=== PATIENT | female | born 1990 | race Caucasian/White ===

== ENCOUNTER 2019-09-07 18:00 | Inpatient (IN) | payer BC ==
[2019-09-07] MEDS: Lactated Ringer's 1,000 ML IV SCH ×2 (18:49→21:00)
[2019-09-07] MEDS ORDERED: Misoprostol 200 MCG TAB PR PRN (19:16)
[2019-09-07] MEDS ORDERED: Butorphanol Tartrate 1 MG/ML VIAL SLOW IVP PRN (19:16)
[2019-09-07] MEDS ORDERED: hydrALAZINE 20 MG/ML VIAL SLOW IVP PRN (19:16)
[2019-09-07] MEDS ORDERED: Zolpidem Tartrate 5 MG TAB PO PRN (19:16)
[2019-09-07] MEDS ORDERED: Diphenoxylate HCl/Atropine Tablet PO PRN ×2 (19:16)
[2019-09-07] MEDS ORDERED: Lidocaine 1% (PF) 30 ML VIAL SC PRN (19:16)
[2019-09-07] MEDS ORDERED: NS / Oxytocin 40 units/1000ml 1,000 ML IV PRN (19:16)
[2019-09-07] MEDS ORDERED: Ondansetron PF 4 MG/2 ML Vial IVP PRN (19:16)
[2019-09-07] MEDS ORDERED: HYDROcodone/Acetaminophen 5/325 mg Tablet PO PRN ×2 (19:16)
[2019-09-07] MEDS ORDERED: Ibuprofen 800 MG TAB PO PRN (19:16)
[2019-09-07] MEDS ORDERED: Promethazine HCl 25 MG/ML VIAL IM PRN (19:16)
[2019-09-07] MEDS ORDERED: Carboprost 250 MCG/ML AMP IM PRN (19:16)
[2019-09-07 19:28] LABS: Hemoglobin 12.4 g/dL (12.0-16.0); Mean Corpuscular HGB CONC 34.2 g/dL (32.0-36.0); Mean Corpuscular Hemoglobin 26.6 pg (27.0-31.0); Mean Corpuscular Volume 77.5 fL (78.0-98.0); Mean Platelet Volume 9.3 fL (7.4-10.4); Platelet Count 249 thou/uL (130-400); RBC Distribution Width 12.9 % (11.5-14.5); Red Blood Cell (RBC) Count 4.65 mill/uL (4.20-5.40)
[2019-09-07 19:40] VITALS: BMI 44.8
[2019-09-07 19:43] LABS: ALT (SGPT) 14 U/L (8-55); AST (SGOT) 10 U/L (5-34); Albumin 3.6 g/dL (3.5-5.0); Alkaline Phosphatase 132 U/L (40-110); Anion Gap 16 mmol/L (10-20); BUN (Urea Nitrogen) 5 mg/dL (7.0-18.7); Bilirubin, Total 0.9 mg/dL (0.2-1.2); Calc. Creatinine Clearance 297 mL/min (70-130); Calcium 9.5 mg/dL (7.8-10.44); Carbon Dioxide 22 mmol/L (22-29); Chloride 102 mmol/L (98-107); Estimated GFR-MDRD Greater than 90; Globulin 2.9 g/dL (2.4-3.5); Glucose 132 mg/dL (70-105); Potassium 3.7 mmol/L (3.5-5.1); Protein, Total 6.5 g/dL (6.0-8.3); Sodium 136 mmol/L (136-145)
[2019-09-07 20:00] LABS: HBSAg Index 0.23 S/CO (0-0.99); Hep B Surf Ag Non-Reactive S/CO (NonReactive); Syphilis Antibody Nonreactive (Nonreactive); Syphilis Antibody Index 0.04 S/CO (<1.00 Non-Reactive)
--- NOTE | 2019-09-07 20:11 | PDOC.LDHP ---
Labor and Delivery H&P Chief complaint: scheduled induction (IOL for GHTN), other HPI: Pt presents for GHTN Current gestational age (weeks): 37 Due date: 09/28/19 Dating criteria: last menstrual period Grav: 4 Para: 1 OB History Details: 2014 39.5 . 8.10 2018 SAB 03/2018 SAB Current complications: gestational hypertension Abnormal US findings: No Past Medical History: Headaches Current medications: pre-hrajinder vitamins Previous surgical history: cholecystectomy, other (Dental surgery) Allergies/Adverse Reactions: Allergies Allergy/AdvReac Type Severity Reaction Status Date / Time erythromycin base Allergy Mild Hives Verified 09/07/19 19:11 Social history: none - Physical Exam Vital signs reviewed and normal: yes General: breathing through contractions Lungs: nonlabored breathing Abdomen: gravid Extremeties: trace edema FHT: category 1 (135 baseline, moderate variability, neg decels.) [place] contractions every: none - Vaginal Exam cm dilated: 3 Effacement: 50% Station: -3 - OB Labs RH: positive Antibody Screen: negative HIV: negative RPR: negative HEPSAg: negative 1 hour GCT: negative GBS: negative Urine drug screen: negative Rubella: immune Additional Labs: Laboratory Tests 09/07/19 09/07/19 09/07/19 19:10 19:10 19:10 WBC 10.0 RBC 4.65 Hgb 12.4 Hct 36.1 MCV 77.5 L MCH 26.6 L MCHC 34.2 RDW 12.9 Plt Count 249 MPV 9.3 Sodium 136 Potassium 3.7 Chloride 102 Carbon Dioxide 22 Anion Gap 16 BUN 5 L Creatinine 0.58 L Estimated GFR (MDRD) Greater than 90 Glucose 132 H Calcium 9.5 Total Bilirubin 0.9 AST 10 ALT 14 Alkaline Phosphatase 132 H Serum Total Protein 6.5 Albumin 3.6 Globulin 2.9 Albumin/Globulin Ratio 1.2 Syphilis IgG/IgM Ab Nonreactive - Assessment L&D Assessment: medically indicated induction - Plan Plan: admit to L&D, cervical ripening (with balloon), other (IV antihypertensives for severe range BPs Cephalic presentation verified by bedside US.)
[2019-09-08] MEDS: Lactated Ringer's 1,000 ML IV SCH ×2 (03:30→12:16)
[2019-09-08] MEDS ORDERED: NS w/ Oxytocin 10 units 500 ML IV SCH (07:00)
--- NOTE | 2019-09-08 07:50 | PDOC.LDPN ---
Labor & Delivery Progress Note - Subjective Subjective: comfortable - Objective Vital signs reviewed and normal: yes General: NAD, resting Uterine fundus: non tender [place] contractions every: none - Assessment (1) Gestational hypertension Code(s): O13.9 - GESTATIONAL HTN W/O SIGNIFICANT PROTEINURIA, UNSP TRIMESTER Current Visit: Yes Status: Acute Plan: other -: A: presenting part is not palpable with cervical exam. Bedside sono to confirm Cephalic presentation after balloon was removed. Bladder is over distended. Inst patient to urinate or will place catheter to drain. P: Urinate Obtain 20min FHT strip Start pitocin. Will reassess for decent. Plan on AROM and Internal placement.
[2019-09-08 09:17] LABS: Bilirubin Negative (Negative); Blood, Urine 2+ (Negative); Clarity Turbid (Clear); Glucose, Urine (Dipstick) Normal (Negative); Leukocyte 500 Leu/uL (Negative); Nitrite Negative (Negative); Protein, Urine (Dipstick) 20 mg/dL (Neg-Trace); RBC/HPF Greater than 50 HPF (0-3); Squamous Epithelial 0-3 HPF (0-3); Urobilinogen Normal mg/dL (Less than 2); WBC/HPF Greater than 50 HPF (0-3)
[2019-09-08 09:24] LABS: Bacteria/HPF Rare-Few HPF (None Seen)
--- NOTE | 2019-09-08 14:14 | PDOC.LDPN ---
Labor & Delivery Progress Note - Subjective Subjective: comfortable - Objective Vital signs reviewed and normal: yes General: breathing through contractions Dilation: 3 Effacement: 75% Station: -3 FHT: category 1 AROM: clear fluid FSE placed: yes - Assessment (1) Gestational hypertension Code(s): O13.9 - GESTATIONAL HTN W/O SIGNIFICANT PROTEINURIA, UNSP TRIMESTER Current Visit: Yes Status: Acute Plan: continue plan of care, pitocin for augmentation
[2019-09-08] MEDS ORDERED: Lidocaine 1% (PF) 30 ML VIAL ONE (14:49)
[2019-09-08] MEDS ORDERED: NS / Oxytocin 40 units/1000ml 1,000 ML ONE (14:49)
--- NOTE | 2019-09-08 17:46 | PDOC.OPDEL ---
OB Operative/Delivery Note Delivery Dr/Surgeon: Miguel Amaya Pre-Delivery Diagnosis: active labor Procedure/Post Delivery Dx: spontaneous vaginal delivery Weeks gestation: 37 Anesthesia: none - Findings A Sex: female Weight: 7 lb 9 oz - 1 min: 9 - 5 min: 9 - Additional Findings/Plan Placenta delivered: spontaneous Repaired Obstetrical Laceration: none Post delivery plan: routine recovery
[2019-09-08] MEDS ORDERED: Labetalol HCl 100 MG/20 ML VIAL SLOW IVP PRN (18:33)
[2019-09-08] MEDS: Labetalol 100 MG TAB PO SCH (20:48)
[2019-09-08 23:59] LABS: Bacteria/HPF None Seen HPF (None Seen); Bilirubin Negative (Negative); Blood, Urine 2+ (Negative); Clarity Turbid (Clear); Glucose, Urine (Dipstick) 100 mg/dL (Negative); Leukocyte 25 Leu/uL (Negative); Mucous/LPF 4+ LPF (<2+); Nitrite Negative (Negative); Protein, Urine (Dipstick) 50 mg/dL (Neg-Trace); RBC/HPF Greater than 50 HPF (0-3); Squamous Epithelial None Seen HPF (0-3); Urobilinogen Normal mg/dL (Less than 2)
[2019-09-09 00:02] LABS: Mean Corpuscular HGB CONC 34.2 g/dL (32.0-36.0); Mean Corpuscular Hemoglobin 26.8 pg (27.0-31.0); Mean Corpuscular Volume 78.5 fL (78.0-98.0); Mean Platelet Volume 9.2 fL (7.4-10.4); Platelet Count 230 thou/uL (130-400); RBC Distribution Width 13.1 % (11.5-14.5); White Blood Cell (WBC) Count 20.9 thou/uL (4.8-10.8)
[2019-09-09 00:19] LABS: ALT (SGPT) 14 U/L (8-55); AST (SGOT) 12 U/L (5-34); Albumin 2.9 g/dL (3.5-5.0); Alkaline Phosphatase 101 U/L (40-110); Anion Gap 13 mmol/L (10-20); BUN (Urea Nitrogen) 4 mg/dL (7.0-18.7); Bilirubin, Total 1.1 mg/dL (0.2-1.2); Calc. Creatinine Clearance 313 mL/min (70-130); Calcium 8.8 mg/dL (7.8-10.44); Carbon Dioxide 19 mmol/L (22-29); Chloride 106 mmol/L (98-107); Estimated GFR-MDRD Greater than 90; Globulin 2.8 g/dL (2.4-3.5); Glucose 131 mg/dL (70-105); Potassium 3.5 mmol/L (3.5-5.1); Protein, Total 5.7 g/dL (6.0-8.3); Sodium 134 mmol/L (136-145)
[2019-09-09] MEDS ORDERED: Methylergonovine 0.2 MG/ML VIAL IM PRN (00:55)
[2019-09-09] MEDS ORDERED: NS / Oxytocin 40 units/1000ml 1,000 ML IV SCH (00:55)
[2019-09-09] MEDS ORDERED: Bisacodyl 10 MG SUPP PR PRN (00:55)
[2019-09-09] MEDS ORDERED: Ondansetron PF 4 MG/2 ML Vial IVP PRN (00:55)
[2019-09-09] MEDS ORDERED: hydrALAZINE 20 MG/ML VIAL SLOW IVP PRN (00:55)
[2019-09-09] MEDS ORDERED: Benzocaine-Menthol 82.5 ML CAN TOP PRN (00:55)
[2019-09-09] MEDS ORDERED: HYDROcodone/Acetaminophen 5/325 mg Tablet PO PRN ×2 (00:55)
[2019-09-09] MEDS ORDERED: Misoprostol 200 MCG TAB VAG PRN (00:55)
[2019-09-09] MEDS ORDERED: Milk Of Magnesia 30 ML UDCUP PO PRN (00:55)
[2019-09-09] MEDS ORDERED: Docusate Calcium (SURFAK) 240 MG CAP PO SCH (01:00)
[2019-09-09] MEDS: Ibuprofen 800 MG TAB PO SCH ×4 (05:59→20:46)
[2019-09-09] MEDS ORDERED: Adacel (T-DAP) 0.5 ML SYRINGE IM ONE (09:00)
[2019-09-09] MEDS ORDERED: Loratadine 10 MG TAB PO PRN (09:23)
--- NOTE | 2019-09-09 09:27 | PDOC.PP ---
Post Progress Note Post Day #: 1 Subjective: Patient is doing well. Has a headache now, but thinks it is from lack of caffeine. Denies RUQ pain or scomata. She is interested in going home today. is going well. PO intake tolerated: yes Flatus: yes Ambulation: yes Vital Signs (12 hours) Temp Pulse Resp BP BP Pulse Ox 09/09/19 08:53 98.1 F 94 16 111/55 L 98 09/08/19 22:21 113 H 169/58 H Weight Weight 295 lb - Physical Examination General: NAD Cardiovascular: no m/r/g, RRR Respiratory: clear to auscultation bilaterally, non-labored breathing Abdominal: + bowel sounds, no distention, appropriately TTP Extremities: negative homans (B) Skin: no rash Neurological: no gross focal deficits Psychiatric: A&Ox3, normal affect Result Diagrams: 09/08/19 23:48 09/08/19 23:48 Additional Labs: Post Labs Blood Type O POSITIVE 09/07/19 19:38 Hep Bs Antigen Non-Reactive S/CO (NonReactive) 09/07/19 19:10 (1) Gestational hypertension Code(s): O13.9 - GESTATIONAL HTN W/O SIGNIFICANT PROTEINURIA, UNSP TRIMESTER Status: Acute (2) (spontaneous vaginal delivery) Code(s): O80 - ENCOUNTER FOR FULL-TERM UNCOMPLICATED DELIVERY Status: Acute - Assessment/Plan A: G4 now p2 sp following IOL for GHTN. BP controlled on PO antihypertensive agents. P: Consider discharge home at 24 hrs if BP are NML and ENAMORADO resolves.
[2019-09-09] MEDS: Labetalol 100 MG TAB PO SCH ×2 (09:29→20:45)
[2019-09-09] MEDS: Docusate Calcium (SURFAK) 240 MG CAP PO SCH ×2 (09:30→20:40)
[2019-09-09] MEDS: Prenatal Vitamin 1 TAB PO SCH (09:30)
[2019-09-09] MEDS: Ferrous Sulfate 325 MG TAB PO SCH ×2 (09:37→17:45)
[2019-09-09] MEDS: Lactated Ringer's 1,000 ML IV SCH (19:54)
[2019-09-10] MEDS: Ibuprofen 800 MG TAB PO SCH ×2 (06:07→14:21)
--- NOTE | 2019-09-10 06:41 | PDOC.PP ---
Post Progress Note Post Day #: PPD2 Subjective: DC held, baby under bili light. She has no c/o today. PO intake tolerated: yes Flatus: yes Ambulation: yes Vital Signs (12 hours) Temp Pulse Resp BP BP Pulse Ox 09/09/19 20:45 98 113/59 L 09/09/19 20:00 98.5 F 98 18 113/59 L 98 Weight Weight 133.81 kg - Physical Examination General: NAD Respiratory: non-labored breathing Neurological: no gross focal deficits Psychiatric: normal affect Result Diagrams: 09/08/19 23:48 09/08/19 23:48 Additional Labs: Post Labs Blood Type O POSITIVE 09/07/19 19:38 Hep Bs Antigen Non-Reactive S/CO (NonReactive) 09/07/19 19:10 - Assessment/Plan DC home today. Precautions reviewed. RTC 6 weeks with Daly Amaya.
[2019-09-10] MEDS: Ferrous Sulfate 325 MG TAB PO SCH (08:50)
[2019-09-10] MEDS: Prenatal Vitamin 1 TAB PO SCH (09:18)
[2019-09-10] MEDS: Docusate Calcium (SURFAK) 240 MG CAP PO SCH (09:19)
[2019-09-10] MEDS: Labetalol 100 MG TAB PO SCH (09:19)
[2019-09-10 13:21] VITALS: BP 137/70; TEMP 98.7
== END 2019-09-10 15:30 | disposition home or self-care (01) | DRG 807 ==
LOC: L&D 19:29 → 3SW 09-09 08:25
PROVIDERS: ADMIT Student in an Organized Health Care Education/Training Program; ATTEND Student in an Organized Health Care Education/Training Program
PROC: 3E033VJ Introduction of Other Hormone into Peripheral Vein, Percutaneous Approach (ICD-10-PCS; 2019-09-07)
PROC: 3E0P7VZ Introduction of Hormone into Female Reproductive, Via Natural or Artificial Opening (ICD-10-PCS; 2019-09-07)
PROC: 10907ZC Drainage of Amniotic Fluid, Therapeutic from Products of Conception, Via Natural or Artificial Opening (ICD-10-PCS; 2019-09-07)
PROC: 10E0XZZ Delivery of Products of Conception, External Approach (ICD-10-PCS; principal; 2019-09-09)
DX: O13.4 Gestational [pregnancy-induced] hypertension without significant proteinuria, complicating childbirth (principal); Z37.0 Single live birth; Z3A.37 37 weeks gestation of pregnancy; Z90.49 Acquired absence of other specified parts of digestive tract; Z88.1 Allergy status to other antibiotic agents
CPT/HCPCS: 36415; 80053; 81001; 85027; 86780; 86850; 86900; 86901; 87340; C1726; J0360; J0595; J2001; J2405; J2590